=== PATIENT | female | born 1935 | race Caucasian/White ===

== ENCOUNTER 2016-04-29 11:44 | Emergency (ER) | payer OTHER, BC ==
--- NOTE | 2016-04-29 11:54 | PDOC ---
Attending Attestation - Resident Resident Name: [email or web address] - ED Attending Attestation I have performed the following: I have examined & evaluated the patient, The case was reviewed & discussed with the resident, I agree w/resident's findings & plan, Exceptions are as noted - HPI HPI: 04/29/16 11:58 The patient is an 81-year-old, immunocompetent female, who presents to the emergency department - Physicial Exam PE: 04/29/16 11:58 Vitals noted She is well-appearing and in no acute distress There is an area of mild erythema of the left 4th finger, just proximal to homar cuticle It it mildly tender to deep palpation There is no fluctuance 04/29/16 12:15 - Medical Decision Making 04/29/16 12:15 She is well appearing and in no acute distress There is no evidence of paronychia Will broaden coverage to treat non-purulent cellulitis She will continue warm soaks but increase the frequency from TID to 5 times daily Clinical impression: Finger cellulitis; mild I discussed the physical exam findings and final diagnoses with the patient. I answered all of the patient's questions. The patient was satisfied with the care received and felt comfortable with the discharge plan and treatment plan. The patient will call their primary care physician within 24 hours to arrange follow-up and will return to the Emergency Department with any new, persistent or worsening symptoms.
[2016-04-29 11:58] VITALS: BP 147/66; PULSE 64; TEMP 97.6; BMI 23.8
--- NOTE | 2016-04-29 12:00 | PDOC ---
History of Present Illness - General Chief Complaint: Wound Infection Stated Complaint: LEFT PINKY WOUND INFECTION Time Seen by Provider: 04/29/16 11:53 History Source: Patient Exam Limitations: No Limitations - History of Present Illness Initial Comments: 04/29/16 12:18 81 year old female with PMH of HTN, Anxiety/Depression, Breast Cancer (s/p Lumpectomy 2012) who presents to ED with 2 weeks left 4th finger cuticle cellultiis. She noticed a small cut 2 weeks ago that became tender & erythematous. 1 week ago she visited her PCP and was given a prescription for Bactrim. The tenderness & erythema have not improved since then. She is a medical billing coder. Denies fever, chills, abdominal pain, chest pain, diarrhea, constipation, nausea, vomiting. Past History - Travel Traveled outside of the country in the last 30 days: No Close contact w/someone who was outside of country & ill: No - Past Medical History Allergies/Adverse Reactions: Allergies Allergy/AdvReac Type Severity Reaction Status Date / Time No Known Allergies Allergy Verified 04/29/16 11:46 Home Medications: Ambulatory Orders Amlodipine Besylate [Norvasc -] 10 mg PO DAILY 07/02/15 Escitalopram Oxalate [Lexapro -] 10 mg PO DAILY 07/02/15 Pantoprazole Sodium [Protonix] 40 mg PO DAILY 07/02/15 Propranolol HCl 10 mg PO ASDIR 07/02/15 Terazosin HCl 2 mg PO DAILY 07/02/15 Cephalexin Monohydrate [Keflex -] 500 mg PO BID #10 capsule 04/29/16 Mupirocin Ointment [Bactroban 2% Ointment -] 1 applic TP ASDIR 04/29/16 Sulfamethoxazole/Trimethoprim [Sulfamethoxazole-Tmp Ds Tablet] 1 each PO ASDIR 04/29/16 Cancer: Yes (LEFT BREAST s/p lumpectomy 2012) HTN: Yes Psychiatric Problems: Yes (DEPRESSION/ANXIETY) - Immunization History Immunization Up to Date: Yes - Psycho/Social/Smoking Cessation Hx Anxiety: Yes Suicidal Ideation: No Smoking History: Never smoked Have you smoked in the past 12 months: No Information on smoking cessation initiated: No Hx Alcohol Use: No Drug/Substance Use Hx: No Substance Use Type: None Review of Systems - Review of Systems Able to Perform ROS?: Yes Is the patient limited Tamazight proficient: No All Other Systems: Reviewed and Negative *Physical Exam - Vital Signs Last Vital Signs Temp Pulse Resp BP Pulse Ox 97.6 F 64 16 147/66 98 04/29/16 11:45 04/29/16 11:45 04/29/16 11:45 04/29/16 11:45 04/29/16 11:45 - Physical Exam General Appearance: Yes: Nourished, Appropriately Dressed HEENT: positive: EOMI, SHO, Normal ENT Inspection Neck: positive: Trachea midline, Normal Thyroid, Supple Respiratory/Chest: positive: Lungs Clear, Normal Breath Sounds Cardiovascular: positive: Regular Rhythm, Regular Rate, S1, S2 Gastrointestinal/Abdominal: positive: Normal Bowel Sounds, Flat, Soft Musculoskeletal: positive: Normal Inspection Extremity: positive: Normal Range of Motion, Other (erythema & tenderness at left 4th finger cuticle, 1cm in diameter) Integumentary: positive: Normal Color, Dry, Warm Neurologic: positive: white kid buffer II-XII NML intact, Fully Oriented, Alert, Normal Mood/ Affect, Motor Strength 5/5 Medical Decision Making - Medical Decision Making 04/29/16 12:25 Patient's finger does not look like paronychia. Erythema and tenderness are both mild. Bactrim has poor coverage for dry cellulitis & there are no signs of abscess formation on physical exam. Patient will be sent home with prescription for Keflex 500mg BID for improved coverage. Patient is instructed to return to ED if no improvement noted in 24 hours. *DC/Admit/Observation/Transfer Diagnosis at time of Disposition: Cellulitis, finger - Discharge Dispostion Disposition: HOME Condition at time of disposition: Stable Admit: No - Prescriptions Prescriptions: Cephalexin Monohydrate [Keflex -] 500 mg PO BID #10 capsule - Patient Instructions Additional Instructions: If no improvement by 24 hours, return to ED.
== END 2016-04-29 12:40 | disposition home or self-care (01) ==
LOC: FER 11:44
DX: L03.012 Cellulitis of left finger (principal); I10 Essential (primary) hypertension; F41.8 Other specified anxiety disorders; Z85.3 Personal history of malignant neoplasm of breast
CPT/HCPCS: 99281-25